=== PATIENT | male | born 1955 | race Caucasian/White ===

== ENCOUNTER 2017-11-28 08:09 | Day surgery (SDC) | payer BC ==
[~2017-11-28 08:09] MED LIST: LIDOCAINE HCL 1% MPF SOL ONE; PROPOFOL 500 MG/50 ML EMU IV ONE
[2017-11-28 10:01] VITALS: PULSE 61
[2017-11-28 10:18] VITALS: BP 138/80; RESP 20; TEMP 97.4; O2SAT 95
== END 2017-11-28 10:25 | disposition home or self-care (01) ==
LOC: SURG 08:09
PROVIDERS: ATTEND Surgery
DX: Z12.11 Encounter for screening for malignant neoplasm of colon (principal); Z86.010 Personal history of colon polyps; D12.5 Benign neoplasm of sigmoid colon
CPT/HCPCS: 99001; J2001; J2704

== ENCOUNTER 2019-05-12 14:11 | Outpatient (CLI) | payer BC ==
[2017-11-28 10:18] VITALS: O2SAT 95
== END 2019-05-12 14:12 | disposition home or self-care (01) ==
LOC: CONVCARE 14:11
PROVIDERS: ATTEND Orthopaedic Surgery
DX: S83.206A Unspecified tear of unspecified meniscus, current injury, right knee, initial encounter (principal); M25.561 Pain in right knee
CPT/HCPCS: 73560